=== PATIENT | female | born 2000 | race African-American/Black ===

== ENCOUNTER 2023-12-01 17:43 | Emergency (ER) | payer SELFPAY ==
[~2023-12-01] VITALS: Ht 172.7 cm; Wt 55.0 kg
[2023-12-01 17:50] VITALS: BP 115/66; PULSE 77; RESP 16; TEMP 97.8; O2SAT 97
[2023-12-01] MEDS ORDERED: ACETAMINOPHEN 325MG TABLET PO STA (17:57)
== END 2023-12-01 18:31 | disposition left against medical advice (07) ==
LOC: ER 17:43
DX: R10.13 Epigastric pain (principal)
CPT/HCPCS: 99283

== ENCOUNTER 2023-12-17 18:57 | Emergency (ER) | payer SELFPAY ==
[~2023-12-17] VITALS: Ht 167.6 cm; Wt 65.0 kg
[2023-12-17 18:59] VITALS: BP 111/70; PULSE 77; RESP 16; TEMP 98.6; O2SAT 100
== END 2023-12-17 19:11 | disposition left against medical advice (07) ==
LOC: ER 18:57
DX: R51.9 Headache, unspecified (principal); Z53.21 Procedure and treatment not carried out due to patient leaving prior to being seen by health care provider
CPT/HCPCS: 99281

== ENCOUNTER 2023-12-21 22:07 | Emergency (ER) | payer SELFPAY ==
[~2023-12-21] VITALS: Ht 172.7 cm; Wt 64.0 kg
[2023-12-21 22:35] VITALS: BP 110/68; PULSE 77; RESP 12; TEMP 98.2; O2SAT 100
== END 2023-12-22 01:00 | disposition left against medical advice (07) ==
LOC: ER 22:07
DX: R51.9 Headache, unspecified (principal); Z53.21 Procedure and treatment not carried out due to patient leaving prior to being seen by health care provider
CPT/HCPCS: 99281